=== PATIENT | male | born 1980 | race Hispanic/Latino ===

== ENCOUNTER → 2023-11-23 06:33 | Outpatient (REF) | payer OTHER, SELFPAY ==
[2023-11-23 08:25] LABS: ALT (SGPT) 35 U/L (0-50); AST (SGOT) 23 U/L (17-59); Albumin 4.2 g/dl (3.5-5.0); Alkaline Phosphatase 80 U/L (38-126); Direct Bilirubin 0.3 mg/dl (0.0-0.4); GGTP 31 U/L (15-73); Total Protein 6.7 g/dl (6.3-8.2)
== END ==
LOC: CLINIC 06:33
PROVIDERS: ATTENDING PHYSICIAN Nurse Practitioner Adult Health
DX: R74.8 Abnormal levels of other serum enzymes (principal)
CPT/HCPCS: 36415; 80076; 82977

== ENCOUNTER → 2024-08-28 06:32 | Outpatient (REF) | payer OTHER, SELFPAY ==
[2024-08-28 07:53] LABS: ALT (SGPT) 53 U/L (0-50); AST (SGOT) 29 U/L (17-59); Albumin 4.8 g/dl (3.5-5.0); Alkaline Phosphatase 94 U/L (38-126); Blood Urea Nitrogen 21 mg/dl (9-20); Calcium 9.6 mg/dl (8.4-10.2); Carbon Dioxide 25 mmol/L (22-30); Chloride 104 mmol/L (98-107); Glucose 91 mg/dl (70-99); HDL Cholesterol 47 mg/dl; LDL Cholesterol, Calculated 114 mg/dl; Potassium 4.8 mmol/L (3.5-5.1); Sodium 138 mmol/L (135-145); Total Bilirubin 0.9 mg/dl (0.2-1.3); Total Cholesterol 208 mg/dl (50-199); Total Protein 6.9 g/dl (6.3-8.2); Triglyceride 239 mg/dl (10-149); Very Low Density Lipoprotein 47 mg/dl (0-30); eGFR > 60.00
== END ==
LOC: CLINIC 06:32
PROVIDERS: ATTENDING PHYSICIAN Nurse Practitioner Adult Health
DX: E78.2 Mixed hyperlipidemia (principal); R74.8 Abnormal levels of other serum enzymes
CPT/HCPCS: 36415; 80053; 80061

== ENCOUNTER → 2025-02-26 07:29 | Outpatient (REF) | payer OTHER, SELFPAY ==
[2025-02-26 09:11] LABS: ALT (SGPT) 50 U/L (0-50); AST (SGOT) 28 U/L (17-59); Albumin 4.6 g/dl (3.5-5.0); Alkaline Phosphatase 74 U/L (38-126); Total Protein 6.9 g/dl (6.3-8.2)
== END ==
LOC: CLINIC 07:29
PROVIDERS: ATTENDING PHYSICIAN Nurse Practitioner Adult Health
DX: R74.8 Abnormal levels of other serum enzymes (principal)
CPT/HCPCS: 36415; 80076